=== PATIENT | male | born 1985 | race Caucasian/White ===

== ENCOUNTER 2016-12-24 16:17 | Emergency (ER) | payer OTHER ==
[~2016-12-24] VITALS: Ht 177.8 cm; Wt 95.0 kg
[2016-12-24 16:19] VITALS: BP 138/88
[2016-12-24 17:36] LABS: HEMATOCRIT 50.1 % (39.2-51.8); HEMOGLOBIN 17.1 g/dL (13.7-18.0); WHITE BLOOD COUNT 5.2 x10^3/uL (3.4-10)
[2016-12-24 17:46] LABS: BLOOD UREA NITROGEN 14 mg/dL (7-18)
[2016-12-24 17:47] LABS: ASPARTATE AMINO TRANSFERASE 17 U/L (15-37)
[2016-12-24] MEDS ORDERED: MAALOX/HYOSCYAMINE/LIDOCAINE 45 ML BTL PO ONE (18:30)
[2016-12-24] MEDS ORDERED: MAALOX/HYOSCYAMINE/LIDOCAINE 45 ML BTL ONE (18:38)
== END 2016-12-24 19:05 | disposition home or self-care (01) ==
LOC: ED 18:59
DX: K29.00 Acute gastritis without bleeding (principal)
CPT/HCPCS: 36415; 74022; 76700; 80053; 81003; 83690; 85025; 99285